=== PATIENT | male | born 1950 | race Caucasian/White ===

== ENCOUNTER 2020-03-27 09:52 | Outpatient (CLI) | payer BC ==
--- NOTE | 2020-03-27 12:06 | RAD ---
LUMBAR SPINE 3 VIEWS: 3 lateral views obtained with flexion and extension and neutral position. INDICATION: Back pain. FINDINGS: Lumbar vertebra maintain height. Moderate degenerative changes seen with anterior osteophytes, most p rominent at T12-L1 and L1-L2. Slight posterolisthesis at L1-2 and at L2-3 noted in the neutral position. This appears to reduce sli ghtly with flexion. Mild loss of disc space at L1-2 and L2-3. Facet hypertrophy is prominent. Alignment at L3-4, L4-5, an d L5-S1 appears normally preserved. IMPRESSION: Degenerative changes as described. POS: [facility]
== END 2020-03-27 09:53 | disposition home or self-care (01) ==
LOC: TBSIIMAG 09:52
PROVIDERS: ATTEND Neurological Surgery
DX: M48.062 Spinal stenosis, lumbar region with neurogenic claudication (principal); M43.10 Spondylolisthesis, site unspecified; M47.816 Spondylosis without myelopathy or radiculopathy, lumbar region; M47.815 Spondylosis without myelopathy or radiculopathy, thoracolumbar region
CPT/HCPCS: 72100